=== PATIENT | female | born 1980 | race African-American/Black ===

== ENCOUNTER 2021-02-20 12:31 | Emergency (ER) | payer MEDICARE, OTHER ==
[2021-02-20 12:58] VITALS: BP 113/73; PULSE 85; TEMP 98.9; BMI 33.3
[2021-02-20] MEDS ORDERED: predniSONE 20 MG TABLET (UD) PO ONE (13:24)
[2021-02-20] MEDS: ALBUTEROL SO4 2.5/IPRATROPIUM 0.5 INH SOL 3 ML VIAL.NEB. NEB SCH ×4 (13:25→14:14)
[2021-02-20] MEDS ORDERED: predniSONE 20 MG TABLET (UD) ONE ×2 (13:37→13:40)
== END 2021-02-20 14:32 | disposition home or self-care (01) ==
LOC: JER 12:31
PROC: 3E0F7GC Introduction of Other Therapeutic Substance into Respiratory Tract, Via Natural or Artificial Opening (ICD-10-PCS; principal; 2021-02-20)
DX: J45.31 Mild persistent asthma with (acute) exacerbation (principal); Z20.822 Contact with and (suspected) exposure to COVID-19
CPT/HCPCS: 94640; 99285-25; C9803; U0003; U0005